=== PATIENT | male | born 1990 | race Caucasian/White ===

== ENCOUNTER 2024-05-19 18:05 | Emergency (ER) | payer OTHER ==
[~2024-05-19] VITALS: Ht 170.2 cm; Wt 95.2 kg
== END 2024-05-19 19:51 | disposition home or self-care (01) ==
LOC: ER 18:05
DX: S61.211A Laceration without foreign body of left index finger without damage to nail, initial encounter (principal); W26.0XXA Contact with knife, initial encounter
CPT/HCPCS: 12001; 99282-25